=== PATIENT | male | born 1965 | race Caucasian/White ===

== ENCOUNTER 2024-11-28 09:08 | Emergency (ER) | payer OTHER, SELFPAY ==
[2024-11-28 09:19] VITALS: BP 134/76
--- NOTE | 2024-11-28 10:03 | ED.GENMED ---
History of Present Illness
General
Chief Complaint: Change in Mental Status
Source: patient
Time Seen by Provider: 11/28/24 09:49
History of Present Illness
History of Present Illness:
59-year-old male with past medical history of chronic alcohol use presenting to the ER with his at the request of primary care provider for evaluation of short-term memory loss that has been worsening over the last 3 weeks. Patient stopped
drinking alcohol within the last 3 weeks, seen by primary care provider in the office earlier this week and was recommended to have blood work which was completed yesterday at [facility] as well as CT imaging however they were unable to obtain this
until next Saturday which is what prompted them to come here at the request of primary care provider. states that patient's memory seems to wax and wane, notes that he did not know who the president was earlier in the week, the year or why they
were coming to the hospital today. She also notes that while playing cards with the patient's mother patient was asking where his stepfather was, notes patient's stepfather had over 8 years ago. Patient is without any physical
complaints at this time. Denies any fevers or infectious symptoms, falls, focal weakness or numbness, abdominal pain, nausea or vomiting. states that patient's appetite has actually increased during this 3-week period. Patient would consume
approximately 8-10 beers daily for at least 20 to 30 years. He also smokes at least half a pack per day.
Past History
Past History
ED Past Medical History: Other (Chronic alcohol use)
ED Past Surgical History: None and Orthopedic
Social History
Tobacco: Smoker
Alcohol: Chronic alcoholic
Drug: None
Personal:
Living: with family
Employment: Not employed
Review of Systems
Review of Systems
All Other Systems: ROS reviewed and negative except as documented in HPI and ROS
Phy Exam
Physical Exam
Physical Exam:
GENERAL: Alert , in no apparent distress, Appears older than stated age
HEAD: Normocephalic atraumatic
EYE: pupils equal and reactive, clear conjunctiva, nonicteric sclera
NECK: Supple, full range of motion without pain
ENT: o/p clr, mmm.
CARDIAC: Regular rate and rhythm .
LUNGS: Clear breath sounds bilaterally, no acute respiratory distress, no wheezes/rales/rhonchi
ABDOMEN: Soft, without focal tenderness, no r/g, no cvat, no obvious ascites or abdominal distention
NEUROLOGICAL: Alert and oriented
SKIN: Warm and dry, skin intact.
MUSCULOSKELETAL: No edema, well perfused.
PSYCH: Normal and appropriate interaction.
Scores
Heart Failure Risk
Heart Failure Risk Score: Not Applicable
Heart Score for Chest Pain Patients
STEMI patient?: Not applicable
Withdrawal Assessment of Alcohol
Withdrawal Assessment Completed?: Not applicable
Course
Orders/Labs/Results
Orders:
Orders
11/28/24 10:00
CT Head W/o Iv Contrast Urgent
Comment:
Reason For Exam: short term memory issues x 3 weeks, ETOH
11/28/24 10:02
Electrocardiogram (*1) Urgent
Reason for Study: Other
Other Reason for Exam: altered mental status
EKG- Treatment ONCE
11/28/24 10:11
Complete Blood Count/With Diff Urgent
Comprehensive Metabolic Panel Urgent
Folate Urgent
Lipase Urgent
Magnesium Urgent
PTT Urgent
Prothrombin Time Urgent
Urinalysis Reflex To Culture Urgent
Date Specimen was Collected: 11/28/24
Time Specimen was Collected: 10:08
Vitamin D, 25-OH Urgent
Abnormal Lab Results
11/28/24
10:11
RBC 2.85 L 10^6/uL
(4.70-6.10)
Hgb 9.8 L g/dL
(13.0-18.0)
Hct 28.8 L %
(39.0-52.0)
MCV 101.1 H fL
(80.0-94.0)
MCH 34.4 H pg
(27.0-31.0)
Absolute Lymphs (auto) 1.0 L 10^3/uL
(1.2-3.4)
Lymphocytes % 19.4 L %
(20.5-51.1)
PT 14.7 H Sec
(11.4-14.6)
Chloride 111 H mmol/L
(98-107)
BUN 4 L mg/dl
(9-20)
Creatinine 0.6 L mg/dL
(0.7-1.3)
Glucose 103 H mg/dl
(70-99)
Total Protein 6.1 L g/dl
(6.3-8.2)
Albumin 3.1 L g/dl
(3.5-5.0)
Urine Ketones 1+ A
(Negative)
11/28/24 10:11
11/28/24 10:11
Vital Signs
Initial and Last Documented VS:
Initial Vital Signs
Temp Pulse Resp BP Pulse Ox
98.4 F 91 16 134/76 98
11/28/24 09:19 11/28/24 09:19 11/28/24 09:19 11/28/24 09:19 11/28/24 09:19
Last Documented Vital Signs
Temp Pulse Resp BP Pulse Ox
98.4 F 91 16 111/75 100
11/28/24 09:19 11/28/24 09:19 11/28/24 09:19 11/28/24 12:45 11/28/24 13:00
MDM/Problems Addressed
Differential Diagnosis Includes:
Metabolic encephalopathy
Less concern for acute alcohol withdrawal given 3 weeks duration since last alcohol use
Electrolyte derangement
Folic acid/thiamine deficiency
Urinary tract infection
CVA
Intracranial mass
SBP considered however no abdominal pain or infectious symptoms
MDM/Problems Addressed:
59-year-old male presenting to the ER for evaluation of 3 weeks of memory impairment, known chronic alcohol use but with cessation of alcohol over the last 3 weeks. No current symptoms to suggest acute withdrawal. Labs have been ordered as an
outpatient but are not resulted at this time. Will check head CT as well as new labs today. Patient hemodynamically stable and in no acute distress. I do anticipate need for further outpatient eval following completion of exam here
Chronic conditions affecting care: Other (Chronic alcohol use)
*Radiology
Radiology exam reviewed: radiology read reviewed
*Pulse Oximetry
SaO2: 98
Oxygen Mode of Delivery: Room air
Patient hypoxic: no
*Critical Care Note
Total Time (30-74mins, 75-104mins- exclusive of procedures): Not Applicable
Patient Management
Discussion with other providers: PCP
Escalation/DeEscalation of care consider admission/obs:
Patient CT scan shows chronic frontal lobe findings in addition to chronic lacunar infarct. Patient remains at current baseline. I notified patient's primary care provider and discussed the case over the telephone. They will follow-up with the
patient this coming week. Patient and are happy with plan. Aware of return precautions to the emergency department.
ED Attending Note
-
Portions of this chart may have been created with voice recognition software.� Occasional wrong word or��sound alike� substitutions may have occurred due to the inherent limitations of voice recognition software.
Discharge Plan
Departure
Patient Disposition: Home (Routine Discharge)
Date of Disposition: 11/28/24
Time of Disposition: 13:14
Patient with high blood pressure during this ER visit?: No
Discharge Problem:
Cognitive impairment
Instructions: Altered Mental Status (DC)
Prescriptions:
No Action
loteprednol etabonate 5 ML drops,suspension
1 drp RIGHT EYE BID
travoprost [Travatan Z] 2.5 ML drops
1 drp RIGHT EYE HS
dorzolamide-timolol (PF) 2-0.5 % Drops
1 drp RIGHT EYE BID
mupirocin 2 % ointment
1 applic topical BID Qty: 1 0RF
Patient Comments:
last dose was this am, 07/11/22
B-complex with vitamin C 1 EACH tablet
1 ea PO DAILY
sennosides [senna] 8.6 mg Tablet
17.2 mg PO BID Qty: 2 0RF
acetaminophen 325 mg Tablet
650 mg PO Q4HWA Qty: 2 0RF
aspirin 325 mg Tablet
325 mg PO DAILY Qty: 1 0RF
magnesium hydroxide 400 mg/5 mL Suspension
30 ml PO DAILYPRN PRN (Reason: constipation) Qty: 30 0RF
docusate sodium 100 mg Capsule
100 mg PO BID Qty: 1 0RF
cefadroxil 500 mg capsule
500 mg PO BID Qty: 14 0RF
Rx Instructions:
*Take w/ food
*Take w/ probiotic
*POST-OP USE
famotidine 20 mg tablet
20 mg PO HS Qty: 30 0RF
Rx Instructions:
post-op
dexamethasone 4 mg tablet
4 mg PO BID Qty: 6 0RF
Rx Instructions:
take with food
post-op use only
Saccharomyces boulardii [Florastor] 250 mg capsule
250 mg PO BID Qty: 1 0RF
meloxicam 15 mg tablet
15 mg PO DAILY Qty: 14 0RF
Rx Instructions:
take with food
post-op
oxycodone 5 mg tablet
5 - 10 mg PO Q6HPRN PRN (Reason: 1 tab moderate-2 tabs severe pain) Qty: 30 0RF
Rx Instructions:
Dx TKA
ongoing therapy
Referrals:
[facility] [Family Provider, General]
Interventions
Interventions:
*Risk Screen - Suicide Last Done: 11/28/24 09:19
*General Assessment Last Done: 11/28/24 11:43
*Neglect/Abuse Screening Last Done: 11/28/24 09:19
*ED- Fall Risk Assessment Last Done: 11/28/24 11:43
*ED COVID-19 Vaccine History Last Done: 11/28/24 11:43
*Nursing Disposition Last Done: 11/28/24 13:35
ED- Neurological Assessment Last Done: 11/28/24 10:22
Discharge Date and Time
Discharge Date/Time: 11/28/24 13:36
Print Language: [id number]
[2024-11-28 10:15] VITALS: BMI 23.0
[2024-11-28 10:27] LABS: Hematocrit 28.8 % (39.0-52.0); Hemoglobin 9.8 g/dL (13.0-18.0); Mean Corp Hgb Conc. 34.0 g/dL (33.0-37.0); Mean Corpuscular Volume 101.1 fL (80.0-94.0); Nucleated Red Blood Cells % 0 % (-); Platelet Count 239 10^3/uL (130-400); Red Cell Dist. Width 11.9 % (11.5-14.5)
[2024-11-28 10:36] LABS: APTT 29.6 Sec (23.4-35.0); INR 1.12; PT 14.7 Sec (11.4-14.6)
[2024-11-28 10:52] LABS: ALT (SGPT) 22 U/L (0-50); AST (SGOT) 21 U/L (17-59); Albumin 3.1 g/dl (3.5-5.0); Alkaline Phosphatase 95 U/L (38-126); Blood Urea Nitrogen 4 mg/dl (9-20); Calcium 8.6 mg/dl (8.4-10.2); Carbon Dioxide 26 mmol/L (22-30); Chloride 111 mmol/L (98-107); Estimated Creatinine Clearance > 125 ml/min; Glucose 103 mg/dl (70-99); Lipase 77 U/L (23-300); Magnesium 1.8 mg/dl (1.6-2.3); Potassium 4.0 mmol/L (3.5-5.1); Sodium 139 mmol/L (135-145); Total Protein 6.1 g/dl (6.3-8.2); eGFR > 60.00
[2024-11-28 11:06] LABS: Vitamin D, 25-OH*** 59.1 ng/mL (30-80)
[2024-11-28 11:40] VITALS: BP 118/81
[2024-11-28 11:55] LABS: Folate 11.4 ng/ml (2.76-20)
[2024-11-28 12:06] LABS: Urine Character Clear (Clear)
[2024-11-28 12:45] VITALS: BP 111/75
== END 2024-11-28 13:36 | disposition home or self-care (01) ==
LOC: EMR 09:08
PROVIDERS: Physician Assistant Medical; EMERGENCY PHYSICIAN Student in an Organized Health Care Education/Training Program; FAMILY PHYSICIAN Nurse Practitioner Adult Health
DX: G31.84 Mild cognitive impairment of uncertain or unknown etiology (principal); F10.21 Alcohol dependence, in remission; F17.200 Nicotine dependence, unspecified, uncomplicated; Z86.73 Personal history of transient ischemic attack (TIA), and cerebral infarction without residual deficits
CPT/HCPCS: 99283; 70450; 80053; 81003; 82306; 82746; 83690; 83735; 85025; 85610; 85730; 93005; 99284

== ENCOUNTER → 2025-02-19 13:37 | Outpatient (REF) | payer OTHER, SELFPAY | LOC: PAVMRI 13:37 | PROVIDERS: ATTENDING PHYSICIAN Nurse Practitioner Adult Health | DX: I69.30 Unspecified sequelae of cerebral infarction (principal) | CPT/HCPCS: 70544; 70551 ==